=== PATIENT | female | born 1950 | race Caucasian/White ===

== ENCOUNTER 2016-08-08 11:17 | Outpatient (CLI) | payer MEDICARE, OTHER | END 2016-08-08 11:18 | disposition home or self-care (01) | DX: I48.2 Chronic atrial fibrillation (principal) ==

== ENCOUNTER 2016-09-25 16:15 | Outpatient (CLI) | payer MEDICARE, OTHER | END 2016-09-25 16:16 | disposition home or self-care (01) | DX: I48.2 Chronic atrial fibrillation (principal) ==

== ENCOUNTER 2016-09-28 11:47 | Outpatient (CLI) | payer MEDICARE, OTHER | END 2016-09-28 11:48 | disposition home or self-care (01) | DX: I48.2 Chronic atrial fibrillation (principal) ==

== ENCOUNTER 2016-11-01 00:22 | Inpatient (IN) | payer MEDICARE, OTHER ==
[2016-11-01] MEDS ORDERED: METOPROLOL 5 MG/5 ML VIAL IVP STA ×4 (00:54→02:04)
[2016-11-01] MEDS ORDERED: METOPROLOL 5 MG/5 ML VIAL IVP ONE ×4 (00:54→02:09)
[2016-11-01] MEDS ORDERED: IPRATROPIUM/ALBUTEROL 3 ML NEB INH STA (00:54)
[2016-11-01] MEDS ORDERED: IPRATROPIUM/ALBUTEROL 3 ML NEB INH ONE (00:57)
[2016-11-01] MEDS ORDERED: FUROSEMIDE 40 MG/4 ML VIAL IVP STA (01:30)
[2016-11-01] MEDS ORDERED: FUROSEMIDE 40 MG/4 ML VIAL ONE (01:34)
[2016-11-01] MEDS ORDERED: ALBUTEROL NEB 2.5 MG/3 ML INH STA (01:36)
[2016-11-01] MEDS ORDERED: ALBUTEROL NEB 2.5 MG/3 ML INH ONE (01:39)
[2016-11-01] MEDS ORDERED: DEXAMETHASONE 10 MG/ML VIAL PO STA (01:41)
[2016-11-01] MEDS ORDERED: CHERRY SYRUP 10 ML UDC PO ONE (01:44)
[2016-11-01] MEDS ORDERED: DEXAMETHASONE 10 MG/ML VIAL ONE (01:45)
[2016-11-01] MEDS ORDERED: ONDANSETRON 4 MG/2 ML VIAL IVP PRN (02:21)
[2016-11-01] MEDS ORDERED: ACETAMINOPHEN 325 MG TABLET PO PRN (02:21)
[2016-11-01] MEDS ORDERED: guaiFENesin 600 MG TABLET PO PRN (02:28)
[2016-11-01] MEDS ORDERED: diltiaZEM INJ 5 MG/ML VIAL IVP STA (02:57)
[2016-11-01] MEDS ORDERED: AZITHROMYCIN INJ 500 MG in SODIUM CHLORIDE 0.9% 250 ML IV SCH (03:30)
[2016-11-01] MEDS ORDERED: cefTRIAXone 2 GM in SODIUM CHLORIDE 0.9% MINIBAG 100 ML IV SCH (03:30)
[2016-11-01] MEDS: SODIUM CHLORIDE FLUSH 0.9% 10 ML SYRINGE IVP PRN ×2 (03:45→14:33)
[2016-11-01] MEDS: SODIUM CHLORIDE FLUSH 0.9% 10 ML SYRINGE IVP SCH ×3 (06:47→21:22)
[2016-11-01] MEDS ORDERED: SODIUM CHLORIDE INHALATION 3 ML NEB ONE ×4 (07:17→20:00)
[2016-11-01] MEDS: LEVALBUTEROL 1.25 MG INH PRN ×4 (07:20→20:03)
[2016-11-01] MEDS ORDERED: FUROSEMIDE 40 MG/4 ML VIAL IVP SCH ×2 (08:00→14:00)
[2016-11-01] MEDS: SACCHAROMYCES BOULARDII 250 MG CAPSULE PO SCH ×2 (08:14→17:32)
[2016-11-01] MEDS: POLYETHYLENE GLYCOL 3350 17 GM PACKET PO SCH (08:23)
[2016-11-01] MEDS: METOPROLOL TARTRATE 25 MG TABLET PO SCH ×2 (10:00→21:22)
[2016-11-01] MEDS ORDERED: WARFARIN 5 MG TABLET PO SCH (14:00)
[2016-11-01] MEDS ORDERED: WARFARIN 2.5 MG TABLET PO SCH (14:00)
[2016-11-01] MEDS: DOXAZOSIN 1 MG TABLET PO SCH (21:22)
[2016-11-01] MEDS: POTASSIUM CHLORIDE 20 MEQ TABLET PO SCH (21:22)
[2016-11-02] MEDS ORDERED: SODIUM CHLORIDE INHALATION 3 ML NEB ONE ×7 (00:20→21:21)
[2016-11-02] MEDS: LEVALBUTEROL 1.25 MG INH PRN ×6 (00:22→21:20)
[2016-11-02] MEDS ORDERED: RACEPINEPHRINE 2.25% NEB INH SCH (05:04)
[2016-11-02] MEDS: SODIUM CHLORIDE FLUSH 0.9% 10 ML SYRINGE IVP SCH ×3 (06:14→21:48)
[2016-11-02] MEDS: FUROSEMIDE 40 MG/4 ML VIAL IVP SCH ×2 (06:14→14:55)
[2016-11-02] MEDS ORDERED: AZITHROMYCIN INJ 500 MG in SODIUM CHLORIDE 0.9% 250 ML IV SCH (08:00)
[2016-11-02] MEDS ORDERED: LISINOPRIL 20 MG TABLET PO SCH (09:00)
[2016-11-02] MEDS ORDERED: cefTRIAXone 2 GM in SODIUM CHLORIDE 0.9% MINIBAG 100 ML IV SCH (09:00)
[2016-11-02] MEDS: MULTIVITAMIN W/MINERALS TABLET PO SCH (09:14)
[2016-11-02] MEDS: POTASSIUM CHLORIDE 20 MEQ TABLET PO SCH ×2 (09:14→20:04)
[2016-11-02] MEDS: CHOLECALCIFEROL 400 UNIT TABLET PO SCH (09:14)
[2016-11-02] MEDS: CALCIUM CARBONATE CHEW 500 MG TABLET PO SCH (09:14)
[2016-11-02] MEDS: SACCHAROMYCES BOULARDII 250 MG CAPSULE PO SCH ×2 (09:14→17:17)
[2016-11-02] MEDS: POLYETHYLENE GLYCOL 3350 17 GM PACKET PO SCH (09:15)
[2016-11-02] MEDS: METOPROLOL TARTRATE 25 MG TABLET PO SCH ×2 (09:33→20:02)
[2016-11-02] MEDS ORDERED: THYROID 60 MG TABLET PO SCH (10:00)
[2016-11-02] MEDS ORDERED: IOPAMIDOL-300 100 ML VIAL IVP ONE (11:57)
[2016-11-02] MEDS ORDERED: IPRATROPIUM 0.2 MG/ML NEB INH ONE (12:50)
[2016-11-02] MEDS: IPRATROPIUM 0.2 MG/ML NEB INH ONE (13:28)
[2016-11-02] MEDS: WARFARIN 2.5 MG TABLET PO SCH (14:56)
[2016-11-02] MEDS: predniSONE 20 MG TABLET PO SCH (14:56)
[2016-11-02] MEDS: DOXAZOSIN 1 MG TABLET PO SCH (20:04)
[2016-11-02] MEDS: SODIUM CHLORIDE FLUSH 0.9% 10 ML SYRINGE IVP PRN (21:49)
[2016-11-03] MEDS: LEVALBUTEROL 1.25 MG INH PRN ×5 (02:00→19:45)
[2016-11-03] MEDS ORDERED: SODIUM CHLORIDE INHALATION 3 ML NEB ONE ×4 (02:02→19:47)
[2016-11-03] MEDS: SODIUM CHLORIDE FLUSH 0.9% 10 ML SYRINGE IVP SCH ×3 (05:47→20:20)
[2016-11-03] MEDS: FUROSEMIDE 40 MG/4 ML VIAL IVP SCH (05:47)
[2016-11-03] MEDS: METOPROLOL 5 MG/5 ML VIAL IVP PRN ×3 (08:36→21:05)
[2016-11-03] MEDS: SACCHAROMYCES BOULARDII 250 MG CAPSULE PO SCH ×2 (08:46→16:37)
[2016-11-03] MEDS: MULTIVITAMIN W/MINERALS TABLET PO SCH (08:47)
[2016-11-03] MEDS: CALCIUM CARBONATE CHEW 500 MG TABLET PO SCH (08:47)
[2016-11-03] MEDS: POLYETHYLENE GLYCOL 3350 17 GM PACKET PO SCH (08:47)
[2016-11-03] MEDS: predniSONE 20 MG TABLET PO SCH (08:47)
[2016-11-03] MEDS: POTASSIUM CHLORIDE 20 MEQ TABLET PO SCH ×2 (08:47→20:19)
[2016-11-03] MEDS: CHOLECALCIFEROL 400 UNIT TABLET PO SCH (08:47)
[2016-11-03] MEDS: METOPROLOL TARTRATE 50 MG TABLET PO SCH ×2 (09:42→20:19)
[2016-11-03] MEDS: WARFARIN 2.5 MG TABLET PO SCH (11:34)
[2016-11-03] MEDS: DOXAZOSIN 1 MG TABLET PO SCH (20:19)
[2016-11-03] MEDS: SODIUM CHLORIDE FLUSH 0.9% 10 ML SYRINGE IVP PRN (20:20)
[2016-11-04] MEDS: SODIUM CHLORIDE FLUSH 0.9% 10 ML SYRINGE IVP SCH ×3 (06:49→21:53)
[2016-11-04] MEDS: SODIUM CHLORIDE FLUSH 0.9% 10 ML SYRINGE IVP PRN (06:49)
[2016-11-04] MEDS: LEVALBUTEROL 1.25 MG INH PRN ×4 (06:50→10:30)
[2016-11-04] MEDS ORDERED: SODIUM CHLORIDE INHALATION 3 ML NEB ONE ×4 (06:50→10:25)
[2016-11-04] MEDS: METOPROLOL TARTRATE 50 MG TABLET PO SCH (08:00)
[2016-11-04] MEDS: POLYETHYLENE GLYCOL 3350 17 GM PACKET PO SCH (09:19)
[2016-11-04] MEDS: predniSONE 20 MG TABLET PO SCH (09:20)
[2016-11-04] MEDS: SACCHAROMYCES BOULARDII 250 MG CAPSULE PO SCH ×2 (09:20→16:59)
[2016-11-04] MEDS: CALCIUM CARBONATE CHEW 500 MG TABLET PO SCH (09:20)
[2016-11-04] MEDS: CHOLECALCIFEROL 400 UNIT TABLET PO SCH (09:20)
[2016-11-04] MEDS: MULTIVITAMIN W/MINERALS TABLET PO SCH (09:20)
[2016-11-04] MEDS: POTASSIUM CHLORIDE 20 MEQ TABLET PO SCH ×2 (09:21→21:52)
[2016-11-04] MEDS: FUROSEMIDE 40 MG/4 ML VIAL IVP SCH (09:21)
[2016-11-04] MEDS ORDERED: METOPROLOL TARTRATE 25 MG TABLET PO ONE (11:00)
[2016-11-04] MEDS ORDERED: ALBUTEROL NEB 2.5 MG/3 ML INH PRN ×2 (11:18→11:22)
[2016-11-04] MEDS ORDERED: diltiaZEM INJ 5 MG/ML VIAL IVP PRN (11:23)
[2016-11-04] MEDS ORDERED: methylPREDNISolone SUCCINATE 125 MG/2 ML VIAL IVP ONE (11:30)
[2016-11-04] MEDS: diltiaZEM 30 MG TABLET PO SCH ×3 (11:51→23:30)
[2016-11-04] MEDS ORDERED: IPRATROPIUM/ALBUTEROL 3 ML NEB INH ONE (12:47)
[2016-11-04] MEDS: METOPROLOL TARTRATE 25 MG TABLET PO SCH ×2 (13:11→13:12)
[2016-11-04] MEDS: WARFARIN 2.5 MG TABLET PO SCH (13:53)
[2016-11-04] MEDS: IPRATROPIUM/ALBUTEROL 3 ML NEB INH SCH ×2 (16:15→20:15)
[2016-11-04] MEDS: SODIUM CHLORIDE 0.9% IV SCH ×2 (16:59→23:31)
[2016-11-04] MEDS: METHYLPREDNISOLONE SUCCINATE IV SCH ×2 (16:59→23:31)
[2016-11-04] MEDS: diltiaZEM INJ 125 MG in DEXTROSE 5% 100 ML IV SCH (18:21)
[2016-11-04] MEDS ORDERED: METOPROLOL TARTRATE 25 MG TABLET PO SCH (21:00)
[2016-11-04] MEDS: DOXAZOSIN 1 MG TABLET PO SCH (22:17)
[2016-11-05] MEDS ORDERED: SODIUM CHLORIDE INHALATION 3 ML NEB ONE (03:04)
[2016-11-05] MEDS: LEVALBUTEROL 1.25 MG INH PRN (03:05)
[2016-11-05] MEDS: diltiaZEM 30 MG TABLET PO SCH ×4 (05:23→23:46)
[2016-11-05] MEDS: SODIUM CHLORIDE 0.9% IV SCH ×2 (05:24→10:50)
[2016-11-05] MEDS: METHYLPREDNISOLONE SUCCINATE IV SCH ×2 (05:24→10:50)
[2016-11-05] MEDS: SODIUM CHLORIDE FLUSH 0.9% 10 ML SYRINGE IVP SCH ×4 (05:24→23:35)
[2016-11-05] MEDS: SACCHAROMYCES BOULARDII 250 MG CAPSULE PO SCH ×2 (07:58→17:11)
[2016-11-05] MEDS: MULTIVITAMIN W/MINERALS TABLET PO SCH (07:58)
[2016-11-05] MEDS: IPRATROPIUM/ALBUTEROL 3 ML NEB INH SCH ×4 (08:00→20:45)
[2016-11-05] MEDS: CALCIUM CARBONATE CHEW 500 MG TABLET PO SCH (09:29)
[2016-11-05] MEDS: CHOLECALCIFEROL 400 UNIT TABLET PO SCH (09:29)
[2016-11-05] MEDS: POTASSIUM CHLORIDE 20 MEQ TABLET PO SCH ×2 (09:29→20:44)
[2016-11-05] MEDS: FUROSEMIDE 40 MG/4 ML VIAL IVP SCH (09:29)
[2016-11-05] MEDS: POLYETHYLENE GLYCOL 3350 17 GM PACKET PO SCH (10:17)
[2016-11-05] MEDS ORDERED: WARFARIN 2.5 MG TABLET PO SCH ×2 (14:00)
[2016-11-05] MEDS: diltiaZEM INJ 125 MG in DEXTROSE 5% 100 ML IV SCH (17:08)
[2016-11-05] MEDS: methylPREDNISolone SUCCINATE 40 MG/ML VIAL IVP SCH ×2 (17:11→23:18)
[2016-11-05] MEDS: DIGOXIN 125 MCG TABLET PO SCH (19:43)
[2016-11-05] MEDS: DOXAZOSIN 1 MG TABLET PO SCH (20:44)
[2016-11-06] MEDS: methylPREDNISolone SUCCINATE 40 MG/ML VIAL IVP SCH ×4 (05:42→22:01)
[2016-11-06] MEDS: diltiaZEM 30 MG TABLET PO SCH ×3 (05:42→17:19)
[2016-11-06] MEDS: SODIUM CHLORIDE FLUSH 0.9% 10 ML SYRINGE IVP SCH ×3 (05:44→21:18)
[2016-11-06] MEDS: IPRATROPIUM/ALBUTEROL 3 ML NEB INH SCH ×4 (07:15→21:35)
[2016-11-06] MEDS: SACCHAROMYCES BOULARDII 250 MG CAPSULE PO SCH ×2 (08:19→17:19)
[2016-11-06] MEDS: FUROSEMIDE 40 MG/4 ML VIAL IVP SCH (08:19)
[2016-11-06] MEDS: CALCIUM CARBONATE CHEW 500 MG TABLET PO SCH (08:19)
[2016-11-06] MEDS: MULTIVITAMIN W/MINERALS TABLET PO SCH (08:19)
[2016-11-06] MEDS: DIGOXIN 125 MCG TABLET PO SCH (08:19)
[2016-11-06] MEDS: CHOLECALCIFEROL 400 UNIT TABLET PO SCH (08:19)
[2016-11-06] MEDS: POTASSIUM CHLORIDE 20 MEQ TABLET PO SCH ×2 (08:19→21:17)
[2016-11-06] MEDS: POLYETHYLENE GLYCOL 3350 17 GM PACKET PO SCH (08:20)
[2016-11-06] MEDS ORDERED: DIGOXIN 500 MCG/2 ML AMP IVP ONE (13:21)
[2016-11-06] MEDS ORDERED: SODIUM CHLORIDE 0.9% 500 ML IV ONE (15:22)
[2016-11-06] MEDS: WARFARIN 2.5 MG TABLET PO SCH (15:29)
[2016-11-06] MEDS: DOXAZOSIN 1 MG TABLET PO SCH (21:17)
[2016-11-07] MEDS: diltiaZEM 30 MG TABLET PO SCH ×3 (00:45→11:21)
[2016-11-07] MEDS: SODIUM CHLORIDE FLUSH 0.9% 10 ML SYRINGE IVP SCH (05:25)
[2016-11-07] MEDS: methylPREDNISolone SUCCINATE 40 MG/ML VIAL IVP SCH (05:25)
[2016-11-07] MEDS: IPRATROPIUM/ALBUTEROL 3 ML NEB INH SCH (07:08)
[2016-11-07] MEDS: SACCHAROMYCES BOULARDII 250 MG CAPSULE PO SCH (08:06)
[2016-11-07] MEDS: POLYETHYLENE GLYCOL 3350 17 GM PACKET PO SCH (08:06)
[2016-11-07] MEDS: POTASSIUM CHLORIDE 20 MEQ TABLET PO SCH (08:06)
[2016-11-07] MEDS: CHOLECALCIFEROL 400 UNIT TABLET PO SCH (08:06)
[2016-11-07] MEDS: CALCIUM CARBONATE CHEW 500 MG TABLET PO SCH (08:06)
[2016-11-07] MEDS: DIGOXIN 125 MCG TABLET PO SCH (08:06)
[2016-11-07] MEDS: MULTIVITAMIN W/MINERALS TABLET PO SCH (08:06)
== END 2016-11-07 12:51 | disposition home or self-care (01) | DRG 189 ==
DX: J96.01 Acute respiratory failure with hypoxia (principal); J20.9 Acute bronchitis, unspecified; R09.02 Hypoxemia; I48.91 Unspecified atrial fibrillation; I50.9 Heart failure, unspecified; I10 Essential (primary) hypertension; E66.9 Obesity, unspecified; I50.21 Acute systolic (congestive) heart failure; N17.9 Acute kidney failure, unspecified; Z68.42 Body mass index [BMI] 45.0-49.9, adult; J20.8 Acute bronchitis due to other specified organisms; J45.909 Unspecified asthma, uncomplicated; I48.2 Chronic atrial fibrillation; I11.0 Hypertensive heart disease with heart failure; R73.9 Hyperglycemia, unspecified; T50.905A Adverse effect of unspecified drugs, medicaments and biological substances, initial encounter; Y92.239 Unspecified place in hospital as the place of occurrence of the external cause; I27.2 Other secondary pulmonary hypertension; E66.01 Morbid (severe) obesity due to excess calories; E03.9 Hypothyroidism, unspecified; Z79.01 Long term (current) use of anticoagulants; Z85.3 Personal history of malignant neoplasm of breast; Z90.10 Acquired absence of unspecified breast and nipple; Z92.21 Personal history of antineoplastic chemotherapy; Z92.3 Personal history of irradiation

== ENCOUNTER 2016-11-19 12:23 | Outpatient (CLI) | payer MEDICARE, OTHER | END 2016-11-19 12:24 | disposition home or self-care (01) | DX: I48.2 Chronic atrial fibrillation (principal) ==

== ENCOUNTER 2016-12-12 12:46 | Outpatient (CLI) | payer MEDICARE, OTHER | END 2016-12-12 12:47 | disposition home or self-care (01) | DX: I48.2 Chronic atrial fibrillation (principal) ==

== ENCOUNTER 2016-12-24 12:21 | Outpatient (CLI) | payer MEDICARE, OTHER | END 2016-12-24 12:22 | disposition home or self-care (01) | LOC: LAB 12:21 | PROVIDERS: ATTEND Pharmacist | DX: I48.2 Chronic atrial fibrillation (principal) | CPT/HCPCS: 85610 ==

== ENCOUNTER 2017-01-10 12:42 | Outpatient (CLI) | payer MEDICARE, OTHER | END 2017-01-10 12:43 | disposition home or self-care (01) | LOC: LAB 12:42 | PROVIDERS: ATTEND Pharmacist | DX: I48.2 Chronic atrial fibrillation (principal) | CPT/HCPCS: 85610 ==

== ENCOUNTER 2017-01-18 14:23 | Outpatient (CLI) | payer MEDICARE, OTHER | END 2017-01-18 14:24 | disposition home or self-care (01) | LOC: LAB 14:23 | PROVIDERS: ATTEND Pharmacist | DX: I48.2 Chronic atrial fibrillation (principal) | CPT/HCPCS: 85610 ==

== ENCOUNTER 2017-01-22 11:32 | Outpatient (CLI) | payer MEDICARE, OTHER | END 2017-01-22 11:33 | disposition home or self-care (01) | LOC: SC 11:32 | PROVIDERS: ATTEND Internal Medicine Pulmonary Disease | DX: G47.10 Hypersomnia, unspecified (principal); G47.8 Other sleep disorders; R06.83 Snoring | CPT/HCPCS: 99203; G0463; 99212 ==

== ENCOUNTER 2017-02-06 11:17 | Outpatient (CLI) | payer MEDICARE, OTHER | END 2017-02-06 11:18 | disposition home or self-care (01) | LOC: LAB 11:17 | PROVIDERS: ATTEND Pharmacist | DX: I48.2 Chronic atrial fibrillation (principal) | CPT/HCPCS: 85610 ==

== ENCOUNTER 2017-02-08 20:44 | Outpatient (CLI) | payer MEDICARE, OTHER | END 2017-02-08 20:45 | disposition home or self-care (01) | LOC: SC 20:44 | PROVIDERS: ATTEND Internal Medicine Pulmonary Disease | DX: G47.33 Obstructive sleep apnea (adult) (pediatric) (principal); I48.91 Unspecified atrial fibrillation | CPT/HCPCS: 95810 ==

== ENCOUNTER 2017-02-20 15:18 | Outpatient (CLI) | payer MEDICARE, OTHER | END 2017-02-20 15:19 | disposition home or self-care (01) | LOC: SC 15:18 | PROVIDERS: ATTEND Nurse Practitioner Family | DX: G47.33 Obstructive sleep apnea (adult) (pediatric) (principal) | CPT/HCPCS: 99214; G0463; 99212 ==

== ENCOUNTER 2017-03-07 11:43 | Outpatient (CLI) | payer MEDICARE, OTHER | END 2017-03-07 11:44 | disposition home or self-care (01) | LOC: LAB 11:43 | PROVIDERS: ATTEND Pharmacist | DX: I48.2 Chronic atrial fibrillation (principal) | CPT/HCPCS: 85610 ==

== ENCOUNTER 2017-03-16 18:31 | Outpatient (CLI) | payer MEDICARE, OTHER | END 2017-03-16 18:32 | disposition home or self-care (01) | LOC: SC 18:31 | PROVIDERS: ATTEND Internal Medicine Pulmonary Disease | DX: G47.33 Obstructive sleep apnea (adult) (pediatric) (principal) | CPT/HCPCS: 95811 ==

== ENCOUNTER 2017-03-26 09:36 | Outpatient (CLI) | payer MEDICARE, OTHER | END 2017-03-26 09:37 | disposition home or self-care (01) | LOC: LAB 09:36 | PROVIDERS: ATTEND Pharmacist | DX: I48.2 Chronic atrial fibrillation (principal) | CPT/HCPCS: 85610 ==

== ENCOUNTER 2017-04-03 11:09 | Outpatient (CLI) | payer MEDICARE, OTHER | END 2017-04-03 11:10 | disposition home or self-care (01) | LOC: SC 11:09 | PROVIDERS: ATTEND Nurse Practitioner Family | DX: G47.33 Obstructive sleep apnea (adult) (pediatric) (principal); I48.2 Chronic atrial fibrillation | CPT/HCPCS: 85610; 99214; G0463; 99212 ==

== ENCOUNTER 2017-04-03 12:18 | Outpatient (CLI) | payer MEDICARE, OTHER | END 2017-04-03 12:19 | disposition home or self-care (01) | LOC: LAB 12:18 | PROVIDERS: ATTEND Pharmacist | DX: I48.2 Chronic atrial fibrillation (principal) | CPT/HCPCS: 85610 ==

== ENCOUNTER 2017-04-17 14:23 | Outpatient (CLI) | payer MEDICARE, OTHER | END 2017-04-17 14:24 | disposition home or self-care (01) | LOC: LAB 14:23 | PROVIDERS: ATTEND Pharmacist | DX: I48.2 Chronic atrial fibrillation (principal) | CPT/HCPCS: 85610 ==

== ENCOUNTER 2017-05-01 10:33 | Outpatient (CLI) | payer MEDICARE, OTHER | END 2017-05-01 10:34 | disposition home or self-care (01) | LOC: LAB 10:33 | PROVIDERS: ATTEND Pharmacist | DX: I48.2 Chronic atrial fibrillation (principal) | CPT/HCPCS: 85610 ==

== ENCOUNTER 2017-07-17 15:11 | Outpatient (CLI) | payer MEDICARE, OTHER | END 2017-07-17 15:12 | disposition home or self-care (01) | LOC: LAB 15:11 | PROVIDERS: ATTEND Pharmacist | DX: I48.2 Chronic atrial fibrillation (principal) | CPT/HCPCS: 85610 ==

== ENCOUNTER 2018-07-18 14:12 | Emergency (ER) | payer MEDICARE, OTHER ==
--- NOTE | 2018-07-18 15:17 | XRAY Report ---
Reason: rolled ankle, felt pop, pain Procedure Date: 07/18/2018 Accession Number: [id number] / [id number] Procedure: XR - Ankle 3 View RT CPT Code: FULL RESULT: EXAM: RIGHT ANKLE RADIOGRAPHY EXAM DATE: 07/18/2018 03:01 PM. CLINICAL HISTORY: Rolled ankle, felt pop, pain. COMPARISON: None. TECHNIQUE: 3 views. FINDINGS: Bones: Avulsion fracture at the distal tip of the fibula. Joints: The ankle mortise is mildly widened. Soft Tissues: Soft tissue swelling about the ankle. IMPRESSION: Distal fibula avulsion fracture. Widened ankle mortise. RADIA CRITICAL RESULT: The findings were discussed with Dr. Adams on 07/18/2018 at 3:25 PM.
--- NOTE | 2018-07-18 15:28 | ED Physician Documentation ---
PD HPI LOWER EXT INJURY - Stated complaint Stated Complaint: RIGHT ANKLE PX - Chief complaint Chief Complaint: Ext Problem - History obtained from History obtained from: Patient - History of Present Illness PD HPI LOW EXT INJURY LOCATION: Right, Ankle Type of injury: Fall Where injury occurred: Street Timing - onset: Today Timing - details: Abrupt onset Review of Systems Constitutional: reports: Reviewed and negative Ears: reports: Reviewed and negative Nose: reports: Reviewed and negative PD PAST MEDICAL HISTORY - Past Medical History Cardiovascular: Hypertension, Atrial fibrillation Respiratory: None Endocrine/Autoimmune: HyPOthyroidism GI: None SUPERANNUATION CLERK: None : None HEENT: Chronic hearing loss, Dental implants Psych: None Musculoskeletal: Osteopenia Derm: None - Past Surgical History Past Surgical History: Yes General: Cholecystectomy /SUPERANNUATION CLERK: Hysterectomy, Oophrectomy, Mastectomy HEENT: Tonsil/Adenoidectomy - Present Medications Home Medications: Ambulatory Orders Medication Instructions Recorded Confirmed Benazepril HCl 40 mg PO DAILY 08/13/13 11/01/16 Calcium Carbonate/Vitamin D3 1 tab PO DAILY 11/01/16 11/01/16 [Calcium 500-Vit D3 200 Tablet] Epinephrine [Epipen 2-Benji] 0.3 mg PO PRN PRN 11/01/16 11/01/16 Multivitamin/Iron/Folic Acid 1 tab PO DAILY 11/01/16 11/01/16 [Centrum Women Tablet] Warfarin [Coumadin] 2.5 mg PO MO 11/01/16 11/01/16 Warfarin [Coumadin] 3.75 mg PO SUTUWETHFRSA 11/01/16 11/01/16 Furosemide 07/18/18 Levothyroxine [Synthroid] 75 mcg PO QDAC 07/18/18 07/18/18 Magnesium Oxide [Magnesium] 200 mg PO 07/18/18 Potassium Chloride 20 meq PO 07/18/18 Verapamil HCl [Verapamil ER] 240 mg PO 07/18/18 07/18/18 - Allergies Allergies/Adverse Reactions: Allergies Allergy/AdvReac Type Severity Reaction Status Date / Time lisinopril Allergy Severe Unknown Verified 07/18/18 15:14 Sulfa (Sulfonamide Allergy Severe Unknown Verified 07/18/18 15:14 Antibiotics) plankton (freshwater or Allergy Severe Anaphylaxis Uncoded 11/01/16 11:42 saltwater) - Social History Does the pt smoke?: No Smoking Status: Never smoker Does the pt drink ETOH?: Yes Does the pt have substance abuse?: No - Immunizations Immunizations are current?: Yes PD ED PE NORMAL - Vitals Vital signs reviewed: Yes - General General: Alert and oriented X 3, No acute distress - Extremities Extremities: Other (Right ankle has mild tenderness over both malleoli without deformity. No proximal fibular or foot tenderness.) - Neuro Neuro: Alert and oriented X 3, Normal speech Results - Vitals Vitals: Vital Signs - 24 hr 07/18/18 14:18 Temperature 36.5 C Heart Rate 78 Respiratory 20 Rate Blood Pressure 144/96 H O2 Saturation 97 Oxygen O2 Source Room air - Rads (name of study) R ankle Radiology: EMP read contemporaneously (Lat mall frx below mortise) PD MEDICAL DECISION MAKING - ED course ED course: Personally I do not see much mortise widening on the x-ray. I discussed the case by phone with the on-call orthopedist, given her size and anticoagulated status I felt uncomfortable sending her out completely nonweightbearing and he agrees she can go in a boot and on a walker. Departure - Departure Disposition: 01 Home, Self Care Clinical Impression: Closed right ankle fracture Qualifiers: Encounter type: initial encounter Qualified Code(s): S82.891A - Other fracture of right lower leg, initial encounter for closed fracture Condition: Good Record reviewed to determine appropriate education?: Yes Instructions: ED Fx Ankle Lateral Malleolus Follow-Up: [facility] [Provider Group] - Within 1 week Comments: I spoke with Dr. Franco our on-call orthopedic surgeon today who feels you can walk and bear weight with use of a walker and in a boot. Call Saturday for an appointment. They will likely re-x-ray it.
[2018-07-18 15:50] VITALS: BP 111/91
== END 2018-07-18 15:59 | disposition home or self-care (01) ==
LOC: ED 14:12
DX: S82.891A Other fracture of right lower leg, initial encounter for closed fracture (principal); X50.1XXA Overexertion from prolonged static or awkward postures, initial encounter; Y92.410 Unspecified street and highway as the place of occurrence of the external cause; I10 Essential (primary) hypertension; Z79.01 Long term (current) use of anticoagulants
CPT/HCPCS: 99283

== ENCOUNTER 2024-04-20 11:02 | Outpatient (CLI) | payer MEDICARE, OTHER ==
--- NOTE | 2024-04-20 13:41 | Ultrasound Report ---
PROCEDURE: Soft Tissue Head or Neck INDICATIONS: R NECK SWELLING TECHNIQUE: Real-time scanning was performed of the neck soft tissue, with image documentation. COMPARISON: None FINDINGS: Focused ultrasound examination right lateral neck at patient's reported area of palpable lump shows n ormal appearing right level 2 lymph nodes measures up to 1.6 x 1 x 0.5 cm in size. IMPRESSION: Normal-appearing right level 2 neck soft tissue lymph node. No suspicious soft tissue ma ss or drainable fluid collection. ACR TI-RADS definitions and recommendations: TI-RADS 1 (benign): 0 points. FNA not needed. TI-RADS 2 (not suspicious): 2 points. FNA not needed. TI-RADS 3 (mildly suspicious): 3 points. "FNA if 2.5 cm or larger, follow up if 1.5 cm or larger (at 1, 3, and 5 years). TI-RADS 4 (moderately suspicious): 4-6 points. "FNA if 1.5 cm or larger, follow up if 1 cm or larger (at 1, 2, 3, and 5 years). TI-RADS 5 (highly suspicious): 7 points or more. "FNA if 1 cm or larger, follow up if 0.5 cm or larger (every year for 5 years). Reviewed by: Alfredo Yates MD on 04/20/2024 1:39 PM PDT Approved by: Alfredo Yates MD on 04/20/2024 1:39 PM PDT Station ID: [id number]
== END 2024-04-20 11:03 | disposition home or self-care (01) ==
LOC: DI 11:02
PROVIDERS: ATTEND Registered Nurse
DX: R22.1 Localized swelling, mass and lump, neck (principal)